=== PATIENT | male | born 1945 | race Caucasian/White ===

== ENCOUNTER 2018-08-09 10:29 | Emergency (ER) | payer MEDICARE, BC, SELFPAY ==
[2018-08-09 10:34] VITALS: BP 165/97; PULSE 61; RESP 18; O2SAT 98; BMI 29.2
--- NOTE | 2018-08-09 10:41 | ED.CHESTPAIN ---
HPI - Chest Pain General Chief Complaint: Chest Pain Stated Complaint: CHEST PAIN Time Seen by Provider: 08/09/18 10:35 Source: patient Mode of arrival: ambulatory Limitations: no limitations History of Present Illness HPI narrative: 73-year-old male comes to the emergency department with left-sided chest discomfort. Patient states it does not quite feel like his typical angina from his prior cardiac events does have some left-sided chest discomfort. Patient noticed about 30 minutes prior to arrival. He states that he has had symptoms on off in the past but not quite like this. He states that he has not been sweaty, no shortness of breath, nothing seems to make it better worse. Patient does denies any nausea or vomiting. No other GI or urinary symptoms. No swelling in his extremities. Denies any abdominal pain. Patient did have a CABG 15 years ago, he had a cardiac catheterization 6 months ago which did not show any any new changes per patient. He takes an aspirin 81 mg as well as Plavix which he both took this morning. He missed his aspirin dose last night. He denies any other surgeries. He states he is allergic to metoprolol. He does not smoke tobacco, he normally smokes 1-2 drinks daily but had quite a few more last night is feeling a little hung over. He smokes weed regularly but no other illicit. Dr. Rivera in his cable lacer and Dr. Qiu as his primary care. Related Data Home Medications Medication Instructions Recorded Confirmed clopidogrel 75 mg PO DAILY #0 01/20/10 08/09/18 MegaRed [place]-3 Krill Oil 1 cap PO DAILY 08/09/18 08/09/18 aspirin 81 mg PO DAILY 08/09/18 08/09/18 atenolol 25 mg PO QPM 08/09/18 08/09/18 atorvastatin 40 mg PO QPM 08/09/18 08/09/18 nitroglycerin 0.4 mg SUBLINGUAL Q5-15M PRN MDD 3 08/09/18 08/09/18 tamsulosin 0.4 mg PO QPM 08/09/18 08/09/18 Allergies Allergy/AdvReac Type Severity Reaction Status Date / Time metoprolol Allergy Unknown Verified 08/09/18 11:05 Review of Systems Review of Systems ROS Unobtainable: All systems reviewed & are unremarkable except as noted in HPI and below Constitutional Denies chills, Denies fever(s), Denies lethargy and Denies weakness Cardiovascular Reports chest pain, Denies diaphoresis, Denies syncope, Denies edema, Denies irregular heart rhythm, Denies lightheadedness, Denies radiating jaw, neck or arm pain, Denies palpitations, Denies dyspnea, Denies dyspnea on exertion and Denies orthopnea Respiratory Denies change in phlegm color, Denies chest congestion, Denies cough, Denies dyspnea and Denies dyspnea on exertion Gastrointestinal Gastrointestinal: Denies abdominal pain, Denies change in bowel habits, Reports heartburn (Intermittently), Denies diarrhea, Denies nausea and Denies vomiting Genitourinary Denies hematuria, Denies dysuria, Denies flank pain and Denies urinary urgency Musculoskeletal Denies back pain Integumentary/Breasts Denies rash Neurologic Denies syncope and Denies weakness Endocrine Denies palpitations [facility] Medical History (Updated 08/09/18 @ 14:01 by Sarah Cho DO) Coronary artery disease (Chronic) Dyslipidemia (Chronic) Hypertension (Chronic) Surgical History (Updated 08/09/18 @ 10:43 by Sarah Cho DO) Hx of CABG (Chronic) Social History (Updated 08/09/18 @ 10:44 by Sarah Cho DO) alcohol intake: current substance use type: marijuana Social History (Updated 08/09/18 @ 10:44 by Sarah Cho DO) alcohol intake: current substance use type: marijuana Exam Narrative Exam Narrative: GENERAL: Alert and oriented x three, well-nourished, well-appearing male in no acute distress. HEENT: Head normocephalic, atraumatic, EOMI, pupils reactive, face symmetric, moist mucous membranes NECK: Supple, full range of motion CARDIOVASCULAR: Regular rate and rhythm without murmurs, rubs or gallops. Chest wall is nontender to palpation. No rashes or skin changes. RESPIRATORY: Breath sounds equal bilaterally, no wheezes rales or rhonchi. ABDOMEN: Soft, nontender. Normoactive bowel sounds all 4 quadrants. No guarding or rebound, rigidity, no mass : No CVA tenderness EXTREMITIES: Normal range of motion, no clubbing or edema. 2+ pulses bilateral lower extremities. Neurovascularly intact NEUROLOGICAL: Cranial nerves II through XII grossly intact. Moving all extremities SKIN: Warm, dry, no petechiae, no rashes or lesions. Initial Vital Signs Initial Vital Signs: Vital Signs Pulse Rate 61 08/09/18 10:34 Respiratory Rate 18 08/09/18 10:34 Blood Pressure 165/97 H 08/09/18 10:34 Pulse Oximetry 98 08/09/18 10:34 Course Orders Ordered: ED Orders 08/09/18 10:40 XR chest 1V Stat Complete Blood Count AUTO DIFF Stat Comprehensive Metabolic Panel Stat Lipase Stat Partial Thromboplastin Time Stat Prothrombin Time INR Stat Troponin & CK Cardiac Panel Stat EKG-12 Lead Stat 08/09/18 13:40 EKG-12 Lead Stat 08/09/18 13:42 Troponin & CK Cardiac Panel Stat Discontinued Medications Aspirin (Aspirin Chew) 243 mg PO NOW ONE Stop: 08/09/18 10:41 Last Admin: 08/09/18 10:45 Dose: 243 mg Sodium Chloride (Normal Saline 0.9%) 1,000 mls @ 150 mls/hr IV CONT MAYELIN Last Infusion: 08/09/18 14:40 Dose: 0 mls/hr Admin: 08/09/18 10:45 Dose: 150 mls/hr Nitroglycerin (Nitrostat) 0.4 mg SL [id number] PRN PRN Reason: Chest Pain Vital Signs - 8 hr 08/09/18 11:30 08/09/18 12:00 08/09/18 13:00 Pulse Rate 59 L 60 58 L Respiratory Rate 17 14 16 Blood Pressure [Left Arm] 156/81 H 153/81 H 142/78 H Pulse Oximetry 100 100 97 08/09/18 14:30 Pulse Rate 62 Respiratory Rate 18 Blood Pressure [Left Arm] 138/76 Pulse Oximetry 96 MDM - Chest Pain Lab Data Attestation: I reviewed the patient's lab results. Result diagrams: 08/09/18 10:40 08/09/18 10:40 Lab Results 08/09/18 08/09/18 08/09/18 Range/Units 10:40 10:40 10:40 WBC 5.1 (4.5-11.0) X10^3/uL RBC 4.96 (4.5-5.9) X10^6/uL Hgb 15.1 (13.5-17.5) g/dL Hct 44.2 (41-53) % MCV 89.1 (80-100) fL MCH 30.5 (26-34) PG MCHC 34.2 (30-36) % RDW 13.2 (11.6-14.8) % Plt Count 163 (150-400) X10^3/uL Neut % (Auto) 57.2 (50-75) % Lymph % (Auto) 31.1 (25-40) % [place] % (Auto) 9.7 (3-14) % Eos % (Auto) 1.1 L (2-4) % Baso % (Auto) 0.9 (0-2) % Neut # (Auto) 2900 (1437-7136) /uL Lymph # (Auto) 1600 (6545-7657) /uL [place] # (Auto) 500 (0-900) /uL Eos # (Auto) 100 (0-450) /uL Baso # (Auto) 0 (0-100) /uL PT 10.6 (10.1-12.7) SECONDS INR 0.9 (0.9-1.3) APTT 28 (26.4-36.2) SECONDS Sodium 141 (137-145) mmol/L Potassium 4.4 (3.4-5.1) mmol/L Chloride 107 (98-107) mmol/L Carbon Dioxide 26 (22-32) mmol/L BUN 10 (9-20) mg/dL Creatinine 0.80 (0.66-1.25) mg/dL Estimated GFR > 60.0 (>60) mL/min BUN/Creatinine Ratio 12.5 (6-22) Glucose 85 (80-110) mg/dL Calcium 9.1 (8.4-10.2) mg/dL Total Bilirubin 0.5 (0.2-1.3) mg/dL AST 24 (17-59) IU/L ALT 16 L (21-72) IU/L Alkaline Phosphatase 60 (38-126) U/L Total Creatine Kinase 97 (55-170) U/L CK-MB (CK-2) TNP CK-MB (CK-2) Rel Index TNP Troponin I < 0.012 (0.01-0.034) ng/mL Total Protein 7.0 (6.3-8.2) g/dL Albumin 4.0 (3.5-5.0) g/dL Globulin 3.0 (1.7-4.1) g/dL Albumin/Globulin Ratio 1.3 (1.0-2.8) Lipase 68 (23-300) U/L 08/09/18 Range/Units 13:42 WBC (4.5-11.0) X10^3/uL RBC (4.5-5.9) X10^6/uL Hgb (13.5-17.5) g/dL Hct (41-53) % MCV (80-100) fL MCH (26-34) PG MCHC (30-36) % RDW (11.6-14.8) % Plt Count (150-400) X10^3/uL Neut % (Auto) (50-75) % Lymph % (Auto) (25-40) % [place] % (Auto) (3-14) % Eos % (Auto) (2-4) % Baso % (Auto) (0-2) % Neut # (Auto) (4182-6943) /uL Lymph # (Auto) (8196-8040) /uL [place] # (Auto) (0-900) /uL Eos # (Auto) (0-450) /uL Baso # (Auto) (0-100) /uL PT (10.1-12.7) SECONDS INR (0.9-1.3) APTT (26.4-36.2) SECONDS Sodium (137-145) mmol/L Potassium (3.4-5.1) mmol/L Chloride (98-107) mmol/L Carbon Dioxide (22-32) mmol/L BUN (9-20) mg/dL Creatinine (0.66-1.25) mg/dL Estimated GFR (>60) mL/min BUN/Creatinine Ratio (6-22) Glucose (80-110) mg/dL Calcium (8.4-10.2) mg/dL Total Bilirubin (0.2-1.3) mg/dL AST (17-59) IU/L ALT (21-72) IU/L Alkaline Phosphatase (38-126) U/L Total Creatine Kinase 94 (55-170) U/L CK-MB (CK-2) TNP CK-MB (CK-2) Rel Index TNP Troponin I < 0.012 (0.01-0.034) ng/mL Total Protein (6.3-8.2) g/dL Albumin (3.5-5.0) g/dL Globulin (1.7-4.1) g/dL Albumin/Globulin Ratio (1.0-2.8) Lipase (23-300) U/L Urine Dip Bedside Urine Glucose Negative Bedside Urine Bilirubin - Negative Bedside Urine Ketone - Negative Urine Specific [place] 1.030 Bedside Urine Occult Blood - Negative Bedside Urine pH 6.0 Bedside Urine Protein - Negative Bedside Urine Urobilinogen +/- 1mg Bedside Urine Nitrite - Negative Bedside Urine Leukocytes - Negative Esterase Imaging Data Chest x-ray: Radiologist's impression: [address] [address] XRay Report Signed Patient: Jonas StevensMR#: [id number] : 1945cct:[id number] Age/Sex: 73 / MDate of Service: 08/09/18 Loc: ED Accession Number: [id number] Procedure: XR chest 1V Ordering Provider: Sarah Cho D.O. PROCEDURE: XR CHEST 1V INDICATIONS: chest pain, left sided TECHNIQUE: One view of the chest was acquired. COMPARISON: None. FINDINGS: Surgical changes and devices: Postoperative changes are present related to prior median sternotomy. Lungs and pleura: Lungs are clear. No pleural effusions or pneumothorax. Mediastinum: Mediastinal contours appear normal. Heart size is enlarged. Bones and chest wall: No suspicious bony lesions. Overlying soft tissues appear unremarkable. IMPRESSION: Cardiomegaly without overt heart failure. No definite pneumonia. Dictated by: Eloy Garcia M.D. on 08/09/2018 at 10:19 Approved by: Eloy Garcia M.D. on 08/09/2018 at 10:22 ECG Data Attestation: I personally reviewed and interpreted this ECG as follows: Prior ECG tracings: available for review Interpretation: Patient is a sinus rhythm with a rate of 61 P are 184 QRS 89 and QTC of 426. Patient has some T-wave inversion in 1 aVL little bit of depression in lateral leads V4 5 and 6. No elevation is appreciated. The EKG from 01/20/2010 does show the changes in aVL as well as depression in for 5 in 6. EKG 2. Shows a rate of 52 P are 189 QRS 89 and QTC of 445. No ST elevation appreciated. Patient 11 depression it is in V 4,5 and 6 and T-wave inversion in 1 aVL. MDM Narrative Medical decision making narrative: Patient states that this chest pain is different than his past angina. He did not try a nitro at home. He has been taking his medications regularly. He states he also had quite a bit of alcohol last night. Patient had troponin x2 which are negative, EKG x2 which are negative with no acute changes. Patient is feeling much better. Discussed with patient he does have risk factors for cardiac causes, we cannot totally rule out a cause such as ACS, unstable angina. Patient feels much more comfortable and plans to return home and follow up with his cable lacer. We discussed if he had any worsening symptoms to return. Discharge Plan Departure Patient Disposition: Home Clinical Impression: Atypical chest pain Discharge Date/Time: 08/09/18 14:47 Interventions: ED Discharge Assessment Last Done: 08/09/18 14:47 Instructions: DI for Atypical Chest Pain Activity Restrictions/Additional Instructions: Follow-up with your primary care physician and/or cable lacer in the next 2-3 days for recheck. Continue home medications as prescribed. Return to the emergency department for worsening or recurrent symptoms, new chest pain, shortness of breath, lightheadedness or passing-out, persistent vomiting, black or bloody stools or other new or concerning symptoms. Prescriptions: No Action clopidogrel 75 mg Tablet 75 mg PO DAILY Qty: 0 RF: 0 atorvastatin 40 mg tablet 40 mg PO QPM RF: 0 atenolol 25 mg tablet 25 mg PO QPM RF: 0 aspirin 81 mg Tablet,Delayed Release (Dr/Ec) 81 mg PO DAILY RF: 0 tamsulosin 0.4 mg capsule 0.4 mg PO QPM RF: 0 nitroglycerin 0.4 mg Tablet, Sublingual 0.4 mg SUBLINGUAL Q5-15M MDD 3 PRN (Reason: Chest Pain) RF: 0 MegaRed [place]-3 Krill Oil 1 cap PO DAILY RF: 0 Referrals: Bernard Mahoney MD [Primary Care Provider] -
[2018-08-09] MEDS: ASPIRIN 81 MG TAB 243 MG PO (10:45)
[2018-08-09] MEDS: SODIUM CHLORIDE 0.9% 1,000 ML 150 ML IV (10:45)
--- NOTE | 2018-08-09 10:45 | ED_ITS ---
HPI - Chest Pain General Chief Complaint: Chest Pain Stated Complaint: CHEST PAIN Time Seen by Provider: 08/09/18 10:35 Source: patient Mode of arrival: ambulatory Limitations: no limitations History of Present Illness HPI narrative: 73-year-old male comes to the emergency department with left- sided chest discomfort. Patient states it does not quite feel like his typical angina from his prior cardiac events does have some left-sided chest discomfort. Patient noticed about 30 minutes prior to arrival. He states that he has had symptoms on off in the past but not quite like this. He states that he has not been sweaty, no shortness of breath, nothing seems to make it better worse. Patient does denies any nausea or vomiting. No other GI or urinary symptoms. No swelling in his extremities. Denies any abdominal pain. Patient did have a CABG 15 years ago, he had a cardiac catheterization 6 months ago which did not show any any new changes per patient. He takes an aspirin 81 mg as well as Plavix which he both took this morning. He missed his aspirin dose last night. He denies any other surgeries. He states he is allergic to metoprolol. He does not smoke tobacco, he normally smokes 1-2 drinks daily but had quite a few more last night is feeling a little hung over. He smokes weed regularly but no other illicit. 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 Qiu as his primary care. Related Data Home Medications Medication Instructions Recorded Confirmed clopidogrel 75 mg PO DAILY #0 01/20/10 08/09/18 MegaRed [place]-3 Krill Oil 1 cap PO DAILY 08/09/18 08/09/18 aspirin 81 mg PO DAILY 08/09/18 08/09/18 atenolol 25 mg PO QPM 08/09/18 08/09/18 atorvastatin 40 mg PO QPM 08/09/18 08/09/18 nitroglycerin 0.4 mg SUBLINGUAL Q5-15M PRN MDD 3 08/09/18 08/09/18 tamsulosin 0.4 mg PO QPM 08/09/18 08/09/18 Allergies Allergy/AdvReac Type Severity Reaction Status Date / Time metoprolol Allergy Unknown Verified 08/09/18 11:05 Review of Systems Review of Systems ROS Unobtainable: All systems reviewed & are unremarkable except as noted in HPI and below Constitutional Denies chills, Denies fever(s), Denies lethargy and Denies weakness Cardiovascular Reports chest pain, Denies diaphoresis, Denies syncope, Denies edema, Denies irregular heart rhythm, Denies lightheadedness, Denies radiating jaw, neck or arm pain, Denies palpitations, Denies dyspnea, Denies dyspnea on exertion and Denies orthopnea Respiratory Denies change in phlegm color, Denies chest congestion, Denies cough, Denies dyspnea and Denies dyspnea on exertion Gastrointestinal Gastrointestinal: Denies abdominal pain, Denies change in bowel habits, Reports heartburn (Intermittently), Denies diarrhea, Denies nausea and Denies vomiting Genitourinary Denies hematuria, Denies dysuria, Denies flank pain and Denies urinary urgency Musculoskeletal Denies back pain Integumentary/Breasts Denies rash Neurologic Denies syncope and Denies weakness Endocrine Denies palpitations [facility] Medical History (Updated 08/09/18 @ 14:01 by Sarah Cho DO) Coronary artery disease (Chronic) Dyslipidemia (Chronic) Hypertension (Chronic) Surgical History (Updated 08/09/18 @ 10:43 by Sarah Cho DO) Hx of CABG (Chronic) Social History (Updated 08/09/18 @ 10:44 by Sarah Cho DO) alcohol intake: current substance use type: marijuana Social History (Updated 08/09/18 @ 10:44 by Sarah Cho DO) alcohol intake: current substance use type: marijuana Exam Narrative Exam Narrative: GENERAL: Alert and oriented x three, well-nourished, well- appearing male in no acute distress. HEENT: Head normocephalic, atraumatic, EOMI, pupils reactive, face symmetric, moist mucous membranes NECK: Supple, full range of motion CARDIOVASCULAR: Regular rate and rhythm without murmurs, rubs or gallops. Chest wall is nontender to palpation. No rashes or skin changes. RESPIRATORY: Breath sounds equal bilaterally, no wheezes rales or rhonchi. ABDOMEN: Soft, nontender. Normoactive bowel sounds all 4 quadrants. No guarding or rebound, rigidity, no mass : No CVA tenderness EXTREMITIES: Normal range of motion, no clubbing or edema. 2+ pulses bilateral lower extremities. Neurovascularly intact NEUROLOGICAL: Cranial nerves II through XII grossly intact. Moving all extremities SKIN: Warm, dry, no petechiae, no rashes or lesions. Initial Vital Signs Initial Vital Signs: Vital Signs Pulse Rate 61 08/09/18 10:34 Respiratory Rate 18 08/09/18 10:34 Blood Pressure 165/97 H 08/09/18 10:34 Pulse Oximetry 98 08/09/18 10:34 Course Orders Ordered: ED Orders 08/09/18 10:40 XR chest 1V Stat Complete Blood Count AUTO DIFF Stat Comprehensive Metabolic Panel Stat Lipase Stat Partial Thromboplastin Time Stat Prothrombin Time INR Stat Troponin & CK Cardiac Panel Stat EKG-12 Lead Stat 08/09/18 13:40 EKG-12 Lead Stat 08/09/18 13:42 Troponin & CK Cardiac Panel Stat Discontinued Medications Aspirin (Aspirin Chew) 243 mg PO NOW ONE Stop: 08/09/18 10:41 Last Admin: 08/09/18 10:45 Dose: 243 mg Sodium Chloride (Normal Saline 0.9%) 1,000 mls @ 150 mls/hr IV CONT MAYELIN Last Infusion: 08/09/18 14:40 Dose: 0 mls/hr Admin: 08/09/18 10:45 Dose: 150 mls/hr Nitroglycerin (Nitrostat) 0.4 mg SL [id number] PRN PRN Reason: Chest Pain Vital Signs - 8 hr 08/09/18 11:30 08/09/18 12:00 08/09/18 13:00 Pulse Rate 59 L 60 58 L Respiratory Rate 17 14 16 Blood Pressure [Left Arm] 156/81 H 153/81 H 142/78 H Pulse Oximetry 100 100 97 08/09/18 14:30 Pulse Rate 62 Respiratory Rate 18 Blood Pressure [Left Arm] 138/76 Pulse Oximetry 96 MDM - Chest Pain Lab Data Attestation: I reviewed the patient's lab results. Result diagrams: 08/09/18 10:40 08/09/18 10:40 Lab Results 08/09/18 08/09/18 08/09/18 Range/Units 10:40 10:40 10:40 WBC 5.1 (4.5-11.0) X10^3/uL RBC 4.96 (4.5-5.9) X10^6/uL Hgb 15.1 (13.5-17.5) g/dL Hct 44.2 (41-53) % MCV 89.1 (80-100) fL MCH 30.5 (26-34) PG MCHC 34.2 (30-36) % RDW 13.2 (11.6-14.8) % Plt Count 163 (150-400) X10^3/uL Neut % (Auto) 57.2 (50-75) % Lymph % (Auto) 31.1 (25-40) % [place] % (Auto) 9.7 (3-14) % Eos % (Auto) 1.1 L (2-4) % Baso % (Auto) 0.9 (0-2) % Neut # (Auto) 2900 (1084-2861) /uL Lymph # (Auto) 1600 (9524-8587) /uL [place] # (Auto) 500 (0-900) /uL Eos # (Auto) 100 (0-450) /uL Baso # (Auto) 0 (0-100) /uL PT 10.6 (10.1-12.7) SECONDS INR 0.9 (0.9-1.3) APTT 28 (26.4-36.2) SECONDS Sodium 141 (137-145) mmol/L Potassium 4.4 (3.4-5.1) mmol/L Chloride 107 (98-107) mmol/L Carbon Dioxide 26 (22-32) mmol/L BUN 10 (9-20) mg/dL Creatinine 0.80 (0.66-1.25) mg/dL Estimated GFR > 60.0 (>60) mL/min BUN/Creatinine Ratio 12.5 (6-22) Glucose 85 (80-110) mg/dL Calcium 9.1 (8.4-10.2) mg/dL Total Bilirubin 0.5 (0.2-1.3) mg/dL AST 24 (17-59) IU/L ALT 16 L (21-72) IU/L Alkaline Phosphatase 60 (38-126) U/L Total Creatine Kinase 97 (55-170) U/L CK-MB (CK-2) TNP CK-MB (CK-2) Rel Index TNP Troponin I < 0.012 (0.01-0.034) ng/mL Total Protein 7.0 (6.3-8.2) g/dL Albumin 4.0 (3.5-5.0) g/dL Globulin 3.0 (1.7-4.1) g/dL Albumin/Globulin Ratio 1.3 (1.0-2.8) Lipase 68 (23-300) U/L 08/09/18 Range/Units 13:42 WBC (4.5-11.0) X10^3/uL RBC (4.5-5.9) X10^6/uL Hgb (13.5-17.5) g/dL Hct (41-53) % MCV (80-100) fL MCH (26-34) PG MCHC (30-36) % RDW (11.6-14.8) % Plt Count (150-400) X10^3/uL Neut % (Auto) (50-75) % Lymph % (Auto) (25-40) % [place] % (Auto) (3-14) % Eos % (Auto) (2-4) % Baso % (Auto) (0-2) % Neut # (Auto) (8150-6412) /uL Lymph # (Auto) (0102-7267) /uL [place] # (Auto) (0-900) /uL Eos # (Auto) (0-450) /uL Baso # (Auto) (0-100) /uL PT (10.1-12.7) SECONDS INR (0.9-1.3) APTT (26.4-36.2) SECONDS Sodium (137-145) mmol/L Potassium (3.4-5.1) mmol/L Chloride (98-107) mmol/L Carbon Dioxide (22-32) mmol/L BUN (9-20) mg/dL Creatinine (0.66-1.25) mg/dL Estimated GFR (>60) mL/min BUN/Creatinine Ratio (6-22) Glucose (80-110) mg/dL Calcium (8.4-10.2) mg/dL Total Bilirubin (0.2-1.3) mg/dL AST (17-59) IU/L ALT (21-72) IU/L Alkaline Phosphatase (38-126) U/L Total Creatine Kinase 94 (55-170) U/L CK-MB (CK-2) TNP CK-MB (CK-2) Rel Index TNP Troponin I < 0.012 (0.01-0.034) ng/mL Total Protein (6.3-8.2) g/dL Albumin (3.5-5.0) g/dL Globulin (1.7-4.1) g/dL Albumin/Globulin Ratio (1.0-2.8) Lipase (23-300) U/L Urine Dip Bedside Urine Glucose Negative Bedside Urine Bilirubin - Negative Bedside Urine Ketone - Negative Urine Specific [place] 1.030 Bedside Urine Occult Blood - Negative Bedside Urine pH 6.0 Bedside Urine Protein - Negative Bedside Urine Urobilinogen +/- 1mg Bedside Urine Nitrite - Negative Bedside Urine Leukocytes - Negative Esterase Imaging Data Chest x-ray: Radiologist's impression: [address] [address] XRay Report Signed Patient: Jonas StevensMR#: [id number] : [id number]:[id number] Age/Sex: 73 / MDate of Service: 08/09/18 Loc: ED Accession Number: [id number] Procedure: XR chest 1V Ordering Provider: Sarah Cho D.O. PROCEDURE: XR CHEST 1V INDICATIONS: chest pain, left sided TECHNIQUE: One view of the chest was acquired. COMPARISON: None. FINDINGS: Surgical changes and devices: Postoperative changes are present related to prior median sternotomy. Lungs and pleura: Lungs are clear. No pleural effusions or pneumothorax. Mediastinum: Mediastinal contours appear normal. Heart size is enlarged. Bones and chest wall: No suspicious bony lesions. Overlying soft tissues appear unremarkable. IMPRESSION: Cardiomegaly without overt heart failure. No definite pneumonia. Dictated by: Eloy Garcia M.D. on 08/09/2018 at 10:19 Approved by: Eloy Garcia M.D. on 08/09/2018 at 10:22 ECG Data Attestation: I personally reviewed and interpreted this ECG as follows: Prior ECG tracings: available for review Interpretation: Patient is a sinus rhythm with a rate of 61 P are 184 QRS 89 and QTC of 426. Patient has some T-wave inversion in 1 aVL little bit of depression in lateral leads V4 5 and 6. No elevation is appreciated. The EKG from 01/20/2010 does show the changes in aVL as well as depression in for 5 in 6. EKG 2. Shows a rate of 52 P are 189 QRS 89 and QTC of 445. No ST elevation appreciated. Patient 11 depression it is in V 4,5 and 6 and T-wave inversion in 1 aVL. MDM Narrative Medical decision making narrative: Patient states that this chest pain is different than his past angina. He did not try a nitro at home. He has been taking his medications regularly. He states he also had quite a bit of alcohol last night. Patient had troponin x2 which are negative, EKG x2 which are negative with no acute changes. Patient is feeling much better. Discussed with patient he does have risk factors for cardiac causes, we cannot totally rule out a cause such as ACS, unstable angina. 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 We discussed if he had any worsening symptoms to return. Discharge Plan Departure Patient Disposition: Home Clinical Impression: Atypical chest pain Discharge Date/Time: 08/09/18 14:47 Interventions: ED Discharge Assessment Last Done: 08/09/18 14:47 Instructions: DI for Atypical Chest Pain Activity Restrictions/Additional Instructions: Follow-up with your primary care physician and/or conveyor belt installer in the next 2-3 days for recheck. Continue home medications as prescribed. Return to the emergency department for worsening or recurrent symptoms, new chest pain, shortness of breath, lightheadedness or passing-out, persistent vomiting, black or bloody stools or other new or concerning symptoms. Prescriptions: No Action clopidogrel 75 mg Tablet 75 mg PO DAILY Qty: 0 RF: 0 atorvastatin 40 mg tablet 40 mg PO QPM RF: 0 atenolol 25 mg tablet 25 mg PO QPM RF: 0 aspirin 81 mg Tablet,Delayed Release (Dr/Ec) 81 mg PO DAILY RF: 0 tamsulosin 0.4 mg capsule 0.4 mg PO QPM RF: 0 nitroglycerin 0.4 mg Tablet, Sublingual 0.4 mg SUBLINGUAL Q5-15M MDD 3 PRN (Reason: Chest Pain) RF: 0 MegaRed [place]-3 Krill Oil 1 cap PO DAILY RF: 0 Referrals: Bernard Mahoney MD [Primary Care Provider] -
[2018-08-09 10:49] LABS: Add Manual Diff / Slide Review NO; Basophils Absolute Auto 0 /uL (0-100); Basophils Percent Auto 0.9 % (0-2); Eosinophils Absolute Auto 100 /uL (0-450); Eosinophils Percent Auto 1.1 % (2-4); Hematocrit 44.2 % (41-53); Hemoglobin 15.1 g/dL (13.5-17.5); Lymphocytes Absolute Auto 1600 /uL (1100-4500); Lymphocytes Percent Auto 31.1 % (25-40); Mean Corpuscular HGB Conc 34.2 % (30-36); Mean Corpuscular Hemoglobin 30.5 PG (26-34); Mean Corpuscular Volume 89.1 fL (80-100); Monocytes Absolute Auto 500 /uL (0-900); Monocytes Percent Auto 9.7 % (3-14); Neutrophils Absolute Auto 2900 /uL (1500-7000); Neutrophils Percent Auto 57.2 % (50-75); Platelet Count 163 X10^3/uL (150-400); Red Blood Cell Count 4.96 X10^6/uL (4.5-5.9); Red Cell Distribution Width 13.2 % (11.6-14.8); White Blood Cell Count 5.1 X10^3/uL (4.5-11.0)
[2018-08-09 10:54] LABS: INR 0.9 (0.9-1.3); Prothrombin Time 10.6 SECONDS (10.1-12.7)
[2018-08-09 10:56] LABS: PTT Partial Thromboplastin Tim 28 SECONDS (26.4-36.2)
[2018-08-09 11:00] LABS: Alanine Aminotransferase 16 IU/L (21-72); Albumin Globulin Ratio 1.3 (1.0-2.8); Alkaline Phosphatase 60 U/L (38-126); Aspartate Aminotransferase 24 IU/L (17-59); BUN Creatinine Ratio 12.5 (6-22); Bilirubin Total 0.5 mg/dL (0.2-1.3); Blood Urea Nitrogen 10 mg/dL (9-20); Calcium 9.1 mg/dL (8.4-10.2); Carbon Dioxide 26 mmol/L (22-32); Chloride 107 mmol/L (98-107); Creatine Kinase 97 U/L (55-170); Estimated Glomerular Filt Rate > 60.0 mL/min (>60); Glucose 85 mg/dL (80-110); HEMOLYSIS < 15 (0-50); Lipase 68 U/L (23-300); Potassium 4.4 mmol/L (3.4-5.1); Sodium 141 mmol/L (137-145)
[2018-08-09 11:09] LABS: Troponin I < 0.012 ng/mL (0.01-0.034)
[2018-08-09 11:30] VITALS: BP 156/81; PULSE 59; RESP 17; O2SAT 100
[2018-08-09 12:00] VITALS: BP 153/81; PULSE 60; RESP 14; O2SAT 100
[2018-08-09 13:00] VITALS: BP 142/78; PULSE 58; RESP 16; O2SAT 97
[2018-08-09 14:03] LABS: Creatine Kinase 94 U/L (55-170)
[2018-08-09 14:16] LABS: Troponin I < 0.012 ng/mL (0.01-0.034)
[2018-08-09 14:30] VITALS: BP 138/76; PULSE 62; RESP 18; O2SAT 96
== END 2018-08-09 14:47 | disposition home or self-care (01) ==
PROVIDERS: Emergency Provider Emergency Medicine; PCP Family Medicine
DX: R07.89 Other chest pain (principal)
CPT/HCPCS: 36415; 36591; 71045; 80053; 81003; 82550; 83690; 84484; 85025; 85610; 85730; 93005; 96360; 96361; 99283; 99285

== ENCOUNTER → 2020-01-03 09:01 | Outpatient (CLI) | payer MEDICARE, BC, SELFPAY ==
[2020-01-03 11:06] LABS: Alanine Aminotransferase 30 IU/L (<50); Albumin 3.8 g/dL (3.5-5.0); Albumin Globulin Ratio 1.3 (1.0-2.8); Alkaline Phosphatase 67 U/L (38-126); Aspartate Aminotransferase 33 IU/L (17-59); BUN Creatinine Ratio 20.7 (6-22); Bilirubin Total 0.7 mg/dL (0.2-1.3); Blood Urea Nitrogen 19 mg/dL (9-20); Calcium 9.2 mg/dL (8.4-10.2); Carbon Dioxide 30 mmol/L (22-32); Chloride 106 mmol/L (98-107); Cholesterol 171 mg/dL (140-199); Estimated Glomerular Filt Rate > 60.0 mL/min (>60); Globulin 2.9 g/dL (1.7-4.1); Glucose 99 mg/dL (80-110); HDL Cholesterol 64 mg/dL (40-60); HEMOLYSIS < 15 (0-50); LDL Cholesterol Calculated 84 mg/dL (<100); Potassium 4.6 mmol/L (3.4-5.1); Sodium 140 mmol/L (137-145); Total Protein 6.7 g/dL (6.3-8.2); Triglycerides 113 mg/dL (35-150)
[2020-01-03 11:36] LABS: Prostate Specific Antigen Scrn 1.74 ng/mL (0.1-4.0)
== END ==
PROVIDERS: PCP Internal Medicine; Referring Provider Internal Medicine; Visit Provider Internal Medicine
DX: E78.2 Mixed hyperlipidemia (principal); I10 Essential (primary) hypertension; I25.10 Atherosclerotic heart disease of native coronary artery without angina pectoris; Z12.5 Encounter for screening for malignant neoplasm of prostate
CPT/HCPCS: 36415; 80053; 80061; G0103

== ENCOUNTER → 2020-03-05 14:45 | Outpatient (CLI) | payer MEDICARE, BC, SELFPAY ==
[2020-03-05 16:12] LABS: COVID19 -Nasal RAPID Negative (Negative)
== END ==
PROVIDERS: PCP Internal Medicine; Visit Provider Physician Assistant
DX: R05 Cough (principal); R53.83 Other fatigue
CPT/HCPCS: 87635

== ENCOUNTER → 2020-07-05 16:19 | Outpatient (CLI) | payer MEDICARE, BC, SELFPAY ==
--- NOTE | 2020-07-05 16:21 | DI.RAD.S_ITS ---
PROCEDURE: XR ANKLE LT MIN 3V INDICATIONS: left ankle pain TECHNIQUE: 3 views of the ankle were acquired. COMPARISON: None. FINDINGS: Bones: Scattered degenerative subchondral sclerosis and spurring. Diffuse midfoot osteoarthritis. Soft tissues: Scattered vascular calcifications. Medial soft tissue swelling. IMPRESSION: Diffuse hindfoot and midfoot osteoarthritis. Medial soft tissue swelling. If the patient's pain or other symptoms persist, consider further evaluation with MRI Dictated by: Jadon Kirkpatrick M.D. on 07/05/2020 at 18:11 Approved by: Jadon Kirkpatrick M.D. on 07/05/2020 at 18:13
== END ==
PROVIDERS: PCP Internal Medicine; Referring Provider Internal Medicine; Visit Provider Internal Medicine
DX: M25.572 Pain in left ankle and joints of left foot (principal); M19.072 Primary osteoarthritis, left ankle and foot
CPT/HCPCS: 73610

== ENCOUNTER → 2021-01-08 11:15 | Outpatient (CLI) | payer MEDICARE, OTHER, SELFPAY ==
[2021-01-08 13:30] LABS: Alanine Aminotransferase 21 IU/L (<50); Albumin 3.8 g/dL (3.5-5.0); Albumin Globulin Ratio 1.4 (1.0-2.8); Alkaline Phosphatase 56 U/L (38-126); Aspartate Aminotransferase 27 IU/L (17-59); BUN Creatinine Ratio 20.7 (6-22); Bilirubin Total 0.7 mg/dL (0.2-1.3); Blood Urea Nitrogen 18 mg/dL (9-20); Carbon Dioxide 31 mmol/L (22-32); Chloride 100 mmol/L (98-107); Estimated Glomerular Filt Rate > 60.0 mL/min (>60); Globulin 2.7 g/dL (1.7-4.1); Glucose 105 mg/dL (80-110); HEMOLYSIS < 15 (0-50); Potassium 3.8 mmol/L (3.4-5.1); Sodium 136 mmol/L (137-145); Total Protein 6.5 g/dL (6.3-8.2)
== END ==
PROVIDERS: PCP Internal Medicine; Referring Provider Internal Medicine; Visit Provider Internal Medicine
DX: I10 Essential (primary) hypertension (principal); E78.2 Mixed hyperlipidemia; I25.10 Atherosclerotic heart disease of native coronary artery without angina pectoris
CPT/HCPCS: 36415; 80053; 84443

== ENCOUNTER 2021-04-02 12:23 | Emergency (ER) | payer MEDICARE, OTHER, SELFPAY ==
[2021-04-02 12:52] VITALS: BP 141/67; PULSE 53; RESP 20; TEMP 36.6; O2SAT 97
--- NOTE | 2021-04-02 12:52 | DI.RAD.S_ITS ---
PROCEDURE: XR RIBS RT MIN 3V W CXR 1V INDICATIONS: fall skiing, chest pain TECHNIQUE: 2 views of the right ribs were acquired, along with a single view chest. COMPARISON: None. FINDINGS: Surgical changes and devices: None. Bones and chest wall: No fractures or dislocations. No suspicious bony lesions. Overlying soft tissues appear unremarkable. Lungs and pleura: No pleural effusions or pneumothorax. Lungs appear clear. Mediastinum: Mediastinal contours appear normal. Heart size is normal. IMPRESSION: No obvious displaced right rib fracture is seen. No acute cardiopulmonary pathology. Dictated by: Christopher Reed M.D. on 04/02/2021 at 13:49 Approved by: Christopher Reed M.D. on 04/02/2021 at 13:50
--- NOTE | 2021-04-02 12:55 | DI.RAD.S_ITS ---
PROCEDURE: XR SHOULDER RT MIN 2V INDICATIONS: fall TECHNIQUE: 3 views of the shoulder were acquired. COMPARISON: None. FINDINGS: Bones: No fractures or dislocations. Mild to moderate acromioclavicular joint and glenohumeral joint osteoarthritic changes are seen. No suspicious bony lesions. Visualized ribs appear intact. Soft tissues: No suspicious soft tissue calcifications. IMPRESSION: No gross acute shoulder fracture or dislocation. 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 Dictated by: Christopher Reed M.D. on 04/02/2021 at 13:48 Approved by: Christopher Reed M.D. on 04/02/2021 at 13:49
--- NOTE | 2021-04-02 15:43 | DI.CT.S_ITS ---
PROCEDURE: CT CHEST WO CON INDICATIONS: Fall, ?rib fx TECHNIQUE: Noncontrast 5 mm thick sections acquired from the pulmonary apices to the posterior costophrenic angles. 1 mm lung window, 5 mm thick coronal and sagittal and 7 mm axial MIP reformats were then acquired. For radiation dose reduction, the following was used: automated exposure control, adjustment of mA and/or kV according to patient size. COMPARISON: [facility], CR, XR RIBS RT MIN 3V W CXR 1V, 04/02/2021, 12:59. FINDINGS: Image quality: Excellent. Lungs and pleura: Minimal peripheral reticular thickening and ground-glass opacity which has the appearance of atelectasis. Left apex pulmonary nodule measuring 0.2 cm, (3/49). Trace right pleural effusion. No pneumothorax. Central and peripheral airways are patent and normal in caliber. Mediastinum: Post median sternotomy and CABG. Heart size is prominent. No pericardial effusion. No mediastinal adenopathy by size criteria. Thoracic aorta and central pulmonary arteries are normal in size. Esophagus is normal in caliber. Small hiatal hernia. Bones and chest wall: Right 1st and 2nd rib fractures. There is minimal displacement. No suspicious bony lesions. Minimal height loss at T6, (6/39). No axillary or supraclavicular adenopathy by size criteria. Thyroid gland is unremarkable. Abdomen: Visualized upper abdominal solid organs and bowel loops appear normal in the absence of contrast. IMPRESSION: 1. Right 1st and 2nd rib fractures. 2. No pneumothorax. No contusion is seen. Suspect mild bilateral atelectasis or scarring. 3. Trace right pleural effusion. 4. Minimal vertebral body height loss at T6. Dictated by: Ronald Aldana M.D. on 04/02/2021 at 16:21 Approved by: Ronald Aldana M.D. on 04/02/2021 at 16:30
[2021-04-02] MEDS: OXYCODONE/ACETAMINOPHEN 5/325 TABLET 1 TAB PO (15:49)
[2021-04-02 16:02] VITALS: BP 124/73; PULSE 54; O2SAT 98
--- NOTE | 2021-04-02 20:32 | ED_ITS ---
HPI - Fall <Lauren Beckham PA-C - Last Filed: 04/02/21 20:40> General Chief Complaint: Fall Stated Complaint: Fell skiing, right side chest Time Seen by Provider: 04/02/21 14:45 Source: patient Mode of arrival: Ambulatory History of Present Illness HPI Narrative: 75-year-old male with past medical history hypertension, hyperlipidemia, coronary artery disease, asthma, BPH presents to the ED status post a fall sustained 6 days prior to arrival. Patient sustained a mechanical fall while skiing, which forced him to fall forward on his right shoulder and chest. Patient has been experiencing some shoulder pain and chest pain since the fall. Patient denies fever, chills, shortness of breath, nausea, vomiting, abdominal pain, head strike, syncope. Patient is not on blood thinners. Related Data Home Medications Medication Instructions Recorded Confirmed MegaRed [place]-3 Krill Oil 1 cap PO DAILY 08/09/18 01/08/21 aspirin 81 mg tablet,delayed 81 mg PO DAILY 08/09/18 01/08/21 release hydrochlorothiazide 25 mg tablet 25 mg PO DAILY tab 07/05/20 01/08/21 Previous Rx's Medication Instructions Recorded atorvastatin 80 mg tablet 80 mg PO DAILY #90 tab 10/31/20 atenolol 25 mg tablet 25 mg PO QPM #90 tab 11/22/20 lisinopril 5 mg tablet 5 mg PO DAILY #90 tab 12/05/20 tamsulosin 0.4 mg capsule 0.4 mg PO BEDTIME #90 cap 12/24/20 oxycodone-acetaminophen 5 mg-325 1 tab PO Q8H PRN #10 tab 04/02/21 mg tablet (Percocet) Allergies Allergy/AdvReac Type Severity Reaction Status Date / Time metoprolol Allergy Unknown rash Verified 01/08/21 10:47 Review of Systems <Lauren Beckham PA-C - Last Filed: 04/02/21 20:40> Review of Systems ROS Unobtainable: All systems reviewed & are unremarkable except as noted in HPI and below Constitutional Constitutional: Denies chills, Denies fatigue, Denies fever(s), Denies frequent falls, Denies lethargy and Denies weakness Eyes Eyes: Denies change in vision, Denies eye discharge, Denies irritation and Denies loss of vision ENT Ears, Nose, Mouth, and Throat: Denies change in voice, Denies dizziness, Denies neck pain, Denies sore throat and Denies throat swelling Cardiovascular Cardiovascular: Reports chest pain, Denies irregular heart rhythm, Denies lightheadedness, Denies palpitations, Denies dyspnea, Denies dyspnea on exertion and Denies orthopnea Comments: Bruising on right chest Respiratory Respiratory: Denies cough, Denies dyspnea, Denies dyspnea on exertion and Denies wheezing Gastrointestinal Gastrointestinal: Denies abdominal pain, Denies change in bowel habits, Denies diarrhea, Denies nausea and Denies vomiting Genitourinary Genitourinary: Denies hematuria, Denies flank pain, Denies urinary incontinence and Denies urinary urgency Musculoskeletal Musculoskeletal: Denies back pain, Denies muscle weakness, Denies neck pain, Denies numbness and Denies tingling Comments: Right shoulder pain Integumentary/Breasts Skin/Breast: Denies pruritus, Denies erythema, Denies rash and Denies wounds Neurologic Neurologic: Denies behavioral changes, Denies confusion, Denies dizziness, Denies frequent falls, Denies loss of vision, Denies numbness, Denies tingling and Denies weakness Psychiatric Psychiatric: Denies anxiety, Denies behavioral changes, Denies confusion, Denies depression, Denies homicidal ideation and Denies suicidal ideation Endocrine Endocrine: Denies fatigue, Denies flushing and Denies palpitations Hematologic/Lymphatic Hematologic/Lymphatic: Denies easy bruising Allergic/Immunologic Allergic/Immunologic: Denies urticaria, Denies throat swelling and Denies wheezing Patient History <Lauren Beckham PA-C - Last Filed: 04/02/21 20:40> Medical History BPH w urinary obs/LUTS Coronary artery disease Essential hypertension Exercise-induced asthma (~1979) Hearing loss Melanoma (~2019) Mixed hyperlipidemia Vision disorder Surgical History Anesthesia Hx of CABG (~2003) S/P vasectomy Family History Father History of heart disease Mental health problem Mother Mental health problem Sister Overweight Sister Cancer Social History Smoking Status: Former smoker alcohol intake: current substance use type: marijuana Smoking Status: Former smoker Exam <Lauren Beckham PA-C - Last Filed: 04/02/21 20:40> Initial Vital Signs Initial Vital Signs: Vital Signs Temperature 97.9 F 04/02/21 12:52 Pulse Rate 53 L 04/02/21 12:52 Respiratory Rate 20 04/02/21 12:52 Blood Pressure 141/67 H 04/02/21 12:52 Pulse Oximetry 97 04/02/21 12:52 Const General: cooperative, healthy appearing and comfortable Eyes General: appearance normal, both eyes and all related structures Neck Neck: normal visual inspection Chest Chest: localized rib tenderness with anteroposterior compression, tenderness and other (Bruising to right upper chest) Resp Effort & Inspection: normal respiratory effort Auscultation: clear to auscultation bilaterally Cardio Rate: regular rate Rhythm: regular rhythm Back/Spine/Pelvis Back: normal to inspection Other: No midline tenderness to palpation Skin General: no rashes or lesions noted Neuro General: patient alert, patient awake and patient oriented x3 Extrem Other: Right shoulder tenderness Psych Appearance: grossly normal <Eldon Cueva DO - Last Filed: 04/03/21 07:12> Initial Vital Signs Initial Vital Signs: Vital Signs Temperature 97.9 F 04/02/21 12:52 Pulse Rate 53 L 04/02/21 12:52 Respiratory Rate 20 04/02/21 12:52 Blood Pressure 141/67 H 04/02/21 12:52 Pulse Oximetry 97 04/02/21 12:52 Course <Lauren Beckham PA-C - Last Filed: 04/02/21 20:40> Orders Ordered: Discontinued Medications Oxycodone/Acetaminophen (Oxycodone/Acetaminophen 5/325 Tablet) 1 tab PO NOW ONE Stop: 04/02/21 15:44 Last Admin: 04/02/21 15:49 Dose: 1 tab Documented by: HOWIE Vital Signs Vital signs: Vital Signs - 8 hr 04/02/21 12:52 04/02/21 16:02 Temperature 97.9 F Pulse Rate 53 L 54 L Respiratory Rate 20 Blood Pressure 141/67 H 124/73 Pulse Oximetry 97 98 <DO Kelly Guy Last Filed: 04/03/21 07:12> Orders Ordered: Discontinued Medications Oxycodone/Acetaminophen (Oxycodone/Acetaminophen 5/325 Tablet) 1 tab PO NOW ONE Stop: 04/02/21 15:44 Last Admin: 04/02/21 15:49 Dose: 1 tab Documented by: HOWIE Vital Signs Vital signs: Vital Signs - 8 hr 04/02/21 12:52 04/02/21 16:02 Temperature 97.9 F Pulse Rate 53 L 54 L Respiratory Rate 20 Blood Pressure 141/67 H 124/73 Pulse Oximetry 97 98 MDM - Fall <Lauren Beckham PA-C - Last Filed: 04/02/21 20:40> Imaging Data CT scan - chest: Radiologist's Impression: PROCEDURE:? CT CHEST WO CON ? INDICATIONS:? Fall, ?rib fx ? TECHNIQUE: Noncontrast 5 mm thick sections acquired from the pulmonary apices to the posterior costophrenic angles.? 1 mm lung window, 5 mm thick coronal and sagittal and 7 mm axial MIP reformats were then acquired.? For radiation dose reduction, the following was used:? automated exposure control, adjustment of mA and/or kV according to patient size.? ? COMPARISON:? [facility], CR, XR RIBS RT MIN 3V W CXR 1V, 04/02/2021, 12:59. ? FINDINGS:? Image quality:? Excellent.? ? Lungs and pleura:? Minimal peripheral reticular thickening and ground-glass opacity which has the appearance of atelectasis.? Left apex pulmonary nodule measuring 0.2 cm, ().? Trace right pleural effusion.? No pneumothorax.? Central and peripheral airways are patent and normal in caliber.? ? Mediastinum:? Post median sternotomy and CABG.? Heart size is prominent.? No pericardial effusion.? No mediastinal adenopathy by size criteria.? Thoracic aorta and central pulmonary arteries are normal in size.? Esophagus is normal in caliber.? Small hiatal hernia.? ? Bones and chest wall:? Right 1st and 2nd rib fractures.? There is minimal displacement.? No suspicious bony lesions.? Minimal height loss at T6, (639).? No axillary or supraclavicular adenopathy by size criteria.? Thyroid gland is unremarkable.? ? Abdomen:? Visualized upper abdominal solid organs and bowel loops appear normal in the absence of contrast.? ? IMPRESSION:? 1. Right 1st and 2nd rib fractures. ? 2. No pneumothorax.? No contusion is seen.? Suspect mild bilateral atelectasis or scarring. ? 3. Trace right pleural effusion. ? 4. Minimal vertebral body height loss at T6.? ? ? Dictated by: Ronald Aldana M.D. on 04/02/2021 at 16:21 ? ? Approved by: Ronald Aldana M.D. on 04/02/2021 at 16:30 ? Shoulder x-ray: Radiologist's Impression: PROCEDURE:? XR SHOULDER RT MIN 2V ? INDICATIONS:? fall ? TECHNIQUE:? 3 views of the shoulder were acquired.? ? COMPARISON:? None. ? FINDINGS:? ? Bones:? No fractures or dislocations.? Mild to moderate acromioclavicular joint and glenohumeral joint osteoarthritic changes are seen.? No suspicious bony lesions.? Visualized ribs appear intact.? ? Soft tissues:? No suspicious soft tissue calcifications.? ? IMPRESSION:? No gross acute shoulder fracture or dislocation.? 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 ? ? Dictated by: Christopher Reed M.D. on 04/02/2021 at 13:48 ? ? Approved by: Christopher Reed M.D. on 04/02/2021 at 13:49 ? Rib xray: Radiologist's Impression: PROCEDURE:? XR RIBS RT MIN 3V W CXR 1V ? INDICATIONS:? fall skiing, chest pain ? TECHNIQUE:? 2 views of the right ribs were acquired, along with a single view chest.? ? COMPARISON:? None. ? FINDINGS:? ? Surgical changes and devices:? None.? ? Bones and chest wall:? No fractures or dislocations.? No suspicious bony lesions.? Overlying soft tissues appear unremarkable.? ? Lungs and pleura:? No pleural effusions or pneumothorax.? Lungs appear clear.? ? Mediastinum:? Mediastinal contours appear normal.? Heart size is normal.? ? IMPRESSION:? No obvious displaced right rib fracture is seen.? No acute cardiopulmonary pathology. ? ? Dictated by: Christopher Reed M.D. on 04/02/2021 at 13:49 ? ? Approved by: Christopher Reed M.D. on 04/02/2021 at 13:50 ? MDM Narrative Medical decision making narrative: 75-year-old male with past medical history hypertension, hyperlipidemia, coronary artery disease, asthma, BPH presents to the ED status post a fall sustained 6 days prior to arrival. Shoulder x-ray and chest CT obtained. Chest CT shows fractures of ribs 1 and 2 on the right side. Patient counseled on incentive spirometry. Discharge patient home with prescription for pain control. ED return precautions discussed. Patient verbalized understanding. Discharge Plan Departure Patient Disposition: Home Clinical Impression: Fracture of rib Instructions: DI for Rib Fracture Activity Restrictions/Additional Instructions: You were evaluated in the ED today for a rib injury. Your shoulder x-ray was negative for fracture/dislocation. The CT of the chest did show fractures off rib 1 and 2. You may take Percocet or ibuprofen, Tylenol for the pain. Please use your incentive spirometer to ensure good lung function. Please follow-up with your PCP. Return to the ED if you have worsening symptoms, chest pain, shortness of breath. Prescriptions: New oxycodone-acetaminophen [Percocet] 5-325 mg tablet 1 tab PO Q8H PRN (Reason: pain) Qty: 10 0RF No Action atorvastatin 80 mg tablet 80 mg PO DAILY Qty: 90 3RF atenolol 25 mg tablet 25 mg PO QPM Qty: 90 3RF lisinopril 5 mg tablet 5 mg PO DAILY Qty: 90 3RF tamsulosin 0.4 mg capsule 0.4 mg PO BEDTIME Qty: 90 3RF hydrochlorothiazide 25 mg tablet 25 mg PO DAILY 0RF aspirin 81 mg Tablet,Delayed Release (Dr/Ec) 81 mg PO DAILY 0RF MegaRed [place]-3 Krill Oil 1 cap PO DAILY 0RF Referrals: Josue Mixon MD [Primary Care Provider] - <Eldon Cueva DO - Last Filed: 04/03/21 07:12> [facility]: Dr Cueva Co-Sign Statement: I was available for consultation during this patient's emergency department visit. This chart is signed by myself for administrative purposes only. I did not have direct contact with this patient during this visit. They were seen independently by the APC.
== END 2021-04-02 16:59 | disposition home or self-care (01) ==
PROVIDERS: Emergency Provider Student in an Organized Health Care Education/Training Program; PCP Internal Medicine
DX: S22.41XA Multiple fractures of ribs, right side, initial encounter for closed fracture (principal); M25.511 Pain in right shoulder; W18.30XA Fall on same level, unspecified, initial encounter; Y93.23 Activity, snow (alpine) (downhill) skiing, snowboarding, sledding, tobogganing and snow tubing
CPT/HCPCS: 71101; 71250; 73030; 99283; 99284

== ENCOUNTER → 2022-03-28 09:27 | Outpatient (CLI) | payer MEDICARE, OTHER, SELFPAY ==
[2022-03-28 12:33] LABS: Alanine Aminotransferase 26 IU/L (<50); Albumin 3.7 g/dL (3.5-5.0); Albumin Globulin Ratio 1.2 (1.0-2.8); Alkaline Phosphatase 73 U/L (38-126); Aspartate Aminotransferase 35 IU/L (17-59); BUN Creatinine Ratio 17.4 (6-22); Bilirubin Total 1.1 mg/dL (0.2-1.3); Blood Urea Nitrogen 16 mg/dL (9-20); Calcium 8.9 mg/dL (8.4-10.2); Carbon Dioxide 28 mmol/L (22-32); Chloride 99 mmol/L (98-107); Cholesterol 160 mg/dL (140-199); Estimated Glomerular Filt Rate > 60 mL/min (>60); Glucose 85 mg/dL (80-110); HDL Cholesterol 66 mg/dL (40-60); HEMOLYSIS < 15 (0-50); LDL Cholesterol Calculated 77 mg/dL (<100); Potassium 4.2 mmol/L (3.4-5.1); Sodium 135 mmol/L (137-145); Total Protein 6.7 g/dL (6.3-8.2); Triglycerides 84 mg/dL (35-150)
== END ==
PROVIDERS: PCP Internal Medicine; Referring Provider Internal Medicine; Visit Provider Internal Medicine
DX: I10 Essential (primary) hypertension (principal); E78.2 Mixed hyperlipidemia; I25.10 Atherosclerotic heart disease of native coronary artery without angina pectoris
CPT/HCPCS: 36415; 80053; 80061

== ENCOUNTER → 2023-04-10 14:41 | Outpatient (CLI) | payer MEDICARE, OTHER, SELFPAY ==
[2023-04-10 16:32] LABS: Alanine Aminotransferase 21 IU/L (<50); Albumin 3.7 g/dL (3.5-5.0); Albumin Globulin Ratio 1.3 (1.0-2.8); Alkaline Phosphatase 58 U/L (38-126); Aspartate Aminotransferase 28 IU/L (17-59); BUN Creatinine Ratio 16.5 (6-22); Bilirubin Total 0.9 mg/dL (0.2-1.3); Blood Urea Nitrogen 15 mg/dL (9-20); Carbon Dioxide 29 mmol/L (22-32); Chloride 102 mmol/L (98-107); Cholesterol 119 mg/dL (140-199); Estimated Glomerular Filt Rate > 60 mL/min (>60); Globulin 2.9 g/dL (1.7-4.1); Glucose 84 mg/dL (80-110); HDL Cholesterol 51 mg/dL (40-60); HEMOLYSIS < 15 (0-50); LDL Cholesterol Calculated 56 mg/dL (<100); Potassium 3.6 mmol/L (3.4-5.1); Sodium 136 mmol/L (137-145); Total Protein 6.6 g/dL (6.3-8.2); Triglycerides 61 mg/dL (35-150)
== END ==
PROVIDERS: PCP Internal Medicine; Referring Provider Internal Medicine; Visit Provider Internal Medicine
DX: I10 Essential (primary) hypertension (principal); E78.2 Mixed hyperlipidemia; I25.10 Atherosclerotic heart disease of native coronary artery without angina pectoris
CPT/HCPCS: 36415; 80053; 80061

== ENCOUNTER → 2024-05-27 07:35 | Outpatient (CLI) | payer MEDICARE, OTHER, SELFPAY ==
[2024-05-27 09:59] LABS: Alanine Aminotransferase 19 IU/L (<50); Albumin 3.6 g/dL (3.5-5.0); Albumin Globulin Ratio 1.3 (1.0-2.8); Alkaline Phosphatase 70 U/L (38-126); Aspartate Aminotransferase 30 IU/L (17-59); BUN Creatinine Ratio 12.2 (6-22); Bilirubin Total 0.8 mg/dL (0.2-1.3); Bilirubin Unconjugated 0.7 mg/dL (0.0-1.1); Blood Urea Nitrogen 11 mg/dL (9-20); Calcium 9.2 mg/dL (8.4-10.2); Carbon Dioxide 29 mmol/L (22-32); Chloride 99 mmol/L (98-107); Cholesterol 132 mg/dL (140-199); Estimated Glomerular Filt Rate > 60 mL/min (>60); Globulin 2.8 g/dL (1.7-4.1); Glucose 97 mg/dL (80-110); HDL Cholesterol 56 mg/dL (40-60); HEMOLYSIS < 15 (0-50); LDL Cholesterol Calculated 63 mg/dL (<100); Potassium 3.8 mmol/L (3.4-5.1); Sodium 135 mmol/L (137-145); Total Protein 6.4 g/dL (6.3-8.2); Triglycerides 63 mg/dL (35-150)
== END ==
LOC: LAB 07:39
PROVIDERS: PCP Internal Medicine; Referring Provider Internal Medicine; Visit Provider Internal Medicine
DX: E78.5 Hyperlipidemia, unspecified (principal); I10 Essential (primary) hypertension
CPT/HCPCS: 36415; 80048; 80061; 80076

== ENCOUNTER 2025-01-09 11:26 | Emergency (ER) | payer MEDICARE, OTHER, SELFPAY ==
[2025-01-09 11:37] VITALS: BP 98/64; PULSE 57; RESP 22; TEMP 36.4; O2SAT 100; BMI 23.0
[2025-01-09 11:42] VITALS: PULSE 70
--- NOTE | 2025-01-09 11:42 | DI.RAD.S_ITS ---
PROCEDURE: XR KNEE RT 3V INDICATIONS: twist knee wrong, pain TECHNIQUE: 3 views of the knee were acquired. COMPARISON: None. FINDINGS: Small marginal osteophytes. Joint spaces are maintained. Intra-articular bodies in the suprapatellar recess. Atherosclerotic calcifications. Surgical clips project along the knee. No fracture or dislocation. Possible small effusion. IMPRESSION: Possible small effusion. No visible fracture. Dictated by: Kevin Velasco M.D. on 01/09/2025 at 12:16 Approved by: Kevin Velasco M.D. on 01/09/2025 at 12:18
--- NOTE | 2025-01-09 13:31 | ED.LOWEXIN ---
HPI - Extremity Injury (Lower) General Chief Complaint: Extremity Injury, Lower Stated Complaint: knee injury @ gym Time Seen by Provider: 01/09/25 12:01 Source: patient and EMS Mode of arrival: EMS History of Present Illness HPI Narrative: 79-year-old male presents to the ED with a right knee injury that he sustained at the gym earlier today. Patient states he was doing some sideways walking for balance, did not notice an object on the floor, tripped on it causing his right knee to be twisted. Since then, patient is complaining of significant pain, inability to bear weight. No numbness, tingling, weakness. No head strike. No blood thinners. Related Data Home Medications ?Medication ?Instructions ?Recorded ?Confirmed aspirin 81 mg tablet,delayed 81 mg PO DAILY 08/09/18 06/24/24 release Previous Rx's ?Medication ?Instructions ?Recorded atenolol 25 mg tablet 25 mg PO QPM #90 tabs 06/24/24 atorvastatin 80 mg tablet 80 mg PO DAILY #90 tabs 06/24/24 hydrochlorothiazide 25 mg tablet 25 mg PO DAILY #90 tabs 06/24/24 tamsulosin 0.4 mg capsule 0.8 mg (2 x 0.4 mg) PO BEDTIME 06/24/24 #180 caps lisinopril 5 mg tablet 5 mg PO DAILY #90 tabs 07/26/24 Allergies Allergy/AdvReac Type Severity Reaction Status Date / Time metoprolol Allergy Unknown rash Verified 06/24/24 14:14 Review of Systems Constitutional Constitutional: Denies chills, Denies fatigue, Denies fever(s), Denies frequent falls, Denies lethargy and Denies weakness Eyes Eyes: Denies change in vision, Denies eye discharge, Denies irritation and Denies loss of vision ENT Ears, Nose, Mouth, and Throat: Denies change in voice, Denies dizziness, Denies neck pain, Denies sore throat and Denies throat swelling Cardiovascular Cardiovascular: Denies chest pain, Denies irregular heart rhythm, Denies lightheadedness, Denies palpitations, Denies dyspnea, Denies dyspnea on exertion and Denies orthopnea Respiratory Respiratory: Denies cough, Denies dyspnea, Denies dyspnea on exertion and Denies wheezing Gastrointestinal Gastrointestinal: Denies abdominal pain, Denies change in bowel habits, Denies diarrhea, Denies nausea and Denies vomiting Musculoskeletal Musculoskeletal: Denies neck pain and Denies numbness Comments: Right knee pain, swelling Integumentary/Breasts Skin/Breast: Denies pruritus, Denies erythema, Denies rash and Denies wounds Neurologic Neurologic: Denies behavioral changes, Denies confusion, Denies dizziness, Denies frequent falls, Denies loss of vision, Denies numbness and Denies weakness Psychiatric Psychiatric: Denies anxiety, Denies behavioral changes, Denies confusion, Denies depression, Denies homicidal ideation and Denies suicidal ideation Endocrine Endocrine: Denies fatigue, Denies flushing and Denies palpitations Hematologic/Lymphatic Hematologic/Lymphatic: Denies easy bruising Allergic/Immunologic Allergic/Immunologic: Denies urticaria, Denies throat swelling and Denies wheezing Patient History Medical History Vision disorder Hearing loss Melanoma (~2018) Exercise-induced asthma (~1979) BPH w urinary obs/LUTS Mixed hyperlipidemia Essential hypertension Coronary artery disease Surgical History Anesthesia S/P vasectomy Hx of CABG (~2003) Family History Father History of heart disease Mental health problem Mother Mental health problem Sister Overweight Sister Cancer Social History Smoking Status: Never smoker alcohol intake: current substance use type: marijuana Smoking Status: Never smoker Exam Narrative Exam Narrative: Const General:?cooperative, healthy appearing and comfortable [facility] Head:?normal to inspection Ears:?hearing grossly normal bilaterally Nose:?external nose normal Face and sinus:?normal facial exam and sinuses nontender Mouth:?oral mucosae normal Throat:?posterior oropharynx normal Eyes General:?appearance normal, both eyes and all related structures Neck Neck:?normal visual inspection and no lymphadenopathy noted Resp Effort & Inspection:?normal respiratory effort Auscultation:?clear to auscultation bilaterally Cardio Rate:?regular rate Rhythm:?regular rhythm Musculoskeletal Right knee appears tender to palpation, mildly swollen. Neurovascularly intact. Neuro General:?patient alert, patient awake and patient oriented x3 Initial Vital Signs Initial Vital Signs: Vital Signs Temperature 97.6 F 01/09/25 11:37 Pulse Rate 57 L 01/09/25 11:37 Respiratory Rate 22 01/09/25 11:37 Blood Pressure 98/64 01/09/25 11:37 Pulse Oximetry 100 01/09/25 11:37 Oxygen Delivery Method Room Air 01/09/25 11:37 Course Orders Ordered: Discontinued Medications Hydrocodone Bitart/Acetaminophen (Hydrocodone/Acet 10/325 Tablet) 1 tab PO NOW ONE Stop: 01/09/25 14:45 Last Admin: 01/09/25 15:00 Dose: 1 tab Documented By: LEONEL Vital Signs Vital signs: Vital Signs - 8 hr 01/09/25 11:37 Temperature 97.6 F Pulse Rate 57 L Respiratory Rate 22 Blood Pressure 98/64 Pulse Oximetry 100 Oxygen Delivery Method Room Air MDM - Extremity Injury (Lower) MDM Narrative Medical decision making narrative: 79-year-old male presents to the ED with a right knee injury that he sustained at the gym earlier today. X-ray shows a small possible infusion, no visible fracture. Patient was given a Percocet for pain. Patient states he has Percocet at home, declines a prescription. Knee was Sanchez wrapped, crutches provided. Recommend follow-up with PCP/ortho as soon as possible. ED return precautions discussed with patient. Patient verbalized understanding. Medical records reviewed: Yes Discharge Plan Departure Patient Disposition: Home Clinical Impression: Knee sprain Qualifiers: Encounter type: initial encounter Involved ligament of knee: unspecified ligament Laterality: right Qualified Code(s): S83.91XA - Sprain of unspecified site of right knee, initial encounter Instructions: DI for Knee Sprain Activity Restrictions/Additional Instructions: You were evaluated in the emergency department today for the right knee injury. Your x-ray does not show any fractures or dislocations. It appears that you have sprained your right knee from the injury. An Sanchez wrap has been applied and you have been fitted with crutches. It is advised that you rest of the knee, keep it elevated, apply ice for the 1st 24 hours. You may apply heat packs after 24 hours. You may take the Vicodin which you normally take for pain control. Please follow-up with your PCP as soon as possible. Return to the ED if you have worsening symptoms, numbness, tingling, weakness. Prescriptions: No Action lisinopril 5 mg tablet 5 mg PO DAILY Qty: 90 3RF atenolol 25 mg tablet 25 mg PO QPM Qty: 90 3RF hydrochlorothiazide 25 mg tablet 25 mg PO DAILY Qty: 90 3RF atorvastatin 80 mg tablet 80 mg PO DAILY Qty: 90 3RF tamsulosin 0.4 mg capsule 0.8 mg PO BEDTIME Qty: 180 3RF aspirin 81 mg Tablet,Delayed Release (Dr/Ec) 81 mg PO DAILY Referrals: Josue Mixon MD [Primary Care Provider, Internal Medicine] Stand Alone Forms: Patient Portal/API
[2025-01-09 13:57] VITALS: BP 177/85
[2025-01-09 14:01] VITALS: BP 168/74
== END 2025-01-09 15:26 | disposition home or self-care (01) ==
PROVIDERS: Emergency Provider Student in an Organized Health Care Education/Training Program; PCP Internal Medicine
DX: S83.91XA Sprain of unspecified site of right knee, initial encounter (principal); X50.1XXA Overexertion from prolonged static or awkward postures, initial encounter
CPT/HCPCS: 73562; 99283